=== PATIENT | female | born 1945 | race Caucasian/White ===

== ENCOUNTER 2017-01-15 11:28 | Emergency (ER) | payer MEDICARE, OTHER ==
--- OUTSIDE RECORDS SUMMARY | 2017-01-15 12:35 | XMS REPORT | Continuity of Care Document ---
:1945 Author Organization [facility] ([facility]) Address [address] [place] [address] Phone [phone] Care Team Providers Name Role Phone Ace Adam Primary Care Provider [phone] Source Comments This disclosure is being made pursuant to the Care Everywhere program, applicable federal and state laws, and may not contain all informaitonavailable regarding this patient.[facility] ([facility]) Active Allergies and Adverse Reactions No Active Allergies Current Medications Prescription Sig. Disp. Refills Start Date End Date Status Hhudzipebenin-Tv-Riwo- take 1 Tab by mouth Active Minerals (ONE-A-DAY daily. WOMENS FORMULA) 27-0.4 mg Tab CALCIUM take 1 Tab by mouth Active CARBONATE/VITAMIN D3 daily. (CALCIUM 600 + D PO) atenolol (TENORMIN) 25 take 0.5 Tabs by 60 Tab 11 07/02/2009 Active mg tablet mouth daily. Indications: Hypertension cyclobenzaprine Take 1 Tab by mouth 90 Tab 2 05/06/2010 Active (FLEXERIL) 10 mg every 8 hours as tablet needed. Indications: Muscle Spasm ferrous sulfate (IRON, Take 325 mg by mouth Active FERROUS SULFATE,) 325 daily. mg (65 mg Iron) tablet aspirin 81 mg chewable Take 81 mg by mouth Active tablet daily. lisinopril (PRINIVIL) Take 1 Tab by mouth 60 Tab 11 06/11/2010 Active 5 mg tablet daily. Indications: Hypertension estradiol (ESTRACE) 2 Take 1 Tab by mouth 60 Tab 5 09/16/2010 Active mg tablet daily. Indications: Vasomotor Symptoms associated with Menopause lisinopril (PRINIVIL) Take 1 Tab by mouth 60 Tab 5 09/16/2010 Active 10 mg tablet daily. Indications: Hypertension naproxen 500 mg tablet Take 1 Tab by mouth 2 60 Tab 1 04/20/2011 Active times daily with meals. Last refill until seen Indications: Osteoarthritis Active Problems Problem Noted Date Lipid screening 07/02/2009 Pain in limb 03/27/2008 Unspecified visual disturbance 12/09/2007 Immunizations Name Dates Previously Given Next Due Hepatitis B, unspecified 05/09/2001 Influenza 05/20/2009 Influenza, PF 06/11/2010 Social History Tobacco Use Types Packs/Day Years Used Date Current Every Day Smoker Cigarettes 2 30 Alcohol Use Drinks/Week oz/Week Comments Yes Last Filed Vital Signs Vital Sign Reading Time Taken Blood Pressure 145/64 06/11/2010 11:41 AM CDT Pulse 62 06/11/2010 11:41 AM CDT Temperature 36 C (96.8 F) 06/11/2010 11:41 AM CDT Respiratory Rate - - Height 1.57 m (5' 1.81") 07/02/2009 10:19 AM [employer] Weight 54.749 kg (120 lb 11.2 oz) 06/11/2010 11:41 AM CDT Body Mass Index 22.21 06/11/2010 11:41 AM CDT Oxygen Saturation - - Plan of Care Health Maintenance Due Date Last Done Comments HCV Screening 1945 Tdap Vaccine 1956 Td Vaccine 1963 Mammogram 1985 Colonoscopy 1995 Hepatitis B Vaccine (2 of 3 - Primary 06/06/2001 05/09/2001 Series) Zoster Vaccine 2005 Osteoporosis Screening (DXA Bone Density) 2010 Pneumococcal Vaccine (1 of 2 - PCV13) 2010 Lipid Disorder Screening 07/02/2014 07/02/2009 HCC Annual Coding COPD 08/09/2015 Influenza Vaccine: Seasonal (#1) 03/09/2016 06/11/2010, 05/20/2009 Results from Last 3 Months Not on file
[2017-01-15 12:53] LABS: Urine Bilirubin Negative (NEGATIVE); Urine Blood Negative /ul (NEGATIVE); Urine Ketone Negative (NEGATIVE); Urine Nitrite Negative (NEGATIVE); Urine Protein Negative (NEGATIVE); Urine Urobilinogen Normal (NORMAL)
[2017-01-15 13:04] LABS: Urine Appearance Clear; Urine Bacteria None Seen; Urine Color Yellow; Urine RBC None Seen /hpf (0-5); Urine WBC None Seen /hpf (0-5)
[2017-01-15] MEDS ORDERED: MAGNESIUM CITRATE 300 ML BTL PO ONE (14:02)
[2017-01-15] MEDS ORDERED: MAGNESIUM CITRATE 300 ML BTL ONE (14:09)
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
[2017-01-15 14:17] VITALS: BP 139/79
== END 2017-01-15 14:27 | disposition home or self-care (01) ==
LOC: ER 11:28
DX: K59.09 Other constipation (principal); F17.200 Nicotine dependence, unspecified, uncomplicated

== ENCOUNTER 2017-10-14 09:19 | Observation (INO) | payer MEDICARE, MEDICAID ==
[2017-10-14] MEDS ORDERED: ONDANSETRON HCL/PF 2 MG/ML VIAL IV PRN (09:26)
[2017-10-14] MEDS ORDERED: ACETAMINOPHEN 500 MG TABLET PO PRN (09:26)
[2017-10-14] MEDS ORDERED: MORPHINE SULFATE 2 MG/ML DISP.SYRIN IV PRN (09:26)
[2017-10-14 09:53] LABS: Hematocrit 32.1 % (37.0-47.0); Hemoglobin 10.1 gm/dL (12.5-16.0); Mean Cell Volume 78.1 fl (78-100); Mean Corpuscular Hemoglobin 24.6 pg (27-31); Mean Corpuscular Hgb Conc 31.5 g/dl (32-36); Mean Platelet Volume 10.2 fl (6.0-9.5); Neutrophil # 6.5 K/mm3 (1.3-6.0); Neutrophil % 62.4 % (42-75.0); Platelet Count 229 K/mm3 (150-450); Red Blood Count 4.11 M/mm3 (4.2-5.4); Red Cell Distribution Width 15.7 % (11.5-14.0); White Blood Count 10.5 K/mm3 (4.0-10.5)
[2017-10-14 10:08] LABS: ALT 71 U/L (19-67); AST 66 U/L (0-48); Albumin * 3.4 gm/dl (3.4-5.0); Alkaline Phosphatase * 123 U/L (50-170); Anion Gap 14.1 mmol/L (6.8-13.8); BUN/Creatinine Ratio 19.7 (9.0-21.6); Bilirubin Direct 0.1 mg/dL (0.0-0.3); Bilirubin, Total 0.2 mg/dL (0.0-1.1); Bilirubin,Indirect 0.1 mg/dL (0.1-0.7); Blood Urea Nitrogen 12 mg/dL (3-23); Calcium * 8.4 mg/dL (7.9-10.9); Carbon Dioxide 24.9 mmol/L (24-32.6); Chloride 101 mmol/L (97-106); Glucose * 133 mg/dL (70-110); Lipase 257 U/L (73-393); Sodium 136 mmol/L (132-142); Total Protein 7.2 gm/dL (6.2-8.2)
[2017-10-14] MEDS: NORMAL SALINE 1,000 ML IV PRN ×2 (10:49→20:19)
[2017-10-14] MEDS: ENOXAPARIN SODIUM 40 MG/0.4 ML SYRG SC SCH (10:53)
[2017-10-14] MEDS: NICOTINE 21 MG PATC TD SCH (10:54)
[2017-10-14] MEDS: HYDROmorphone HCL 2 MG/ML VIAL IV PRN ×2 (10:57→18:45)
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
[2017-10-14] MEDS ORDERED: DIATRIZOATE MEGLUMINE, SODIUM 30 ML BTL PO ONE (13:25)
[2017-10-14] MEDS ORDERED: ALBUTEROL SULFATE 2.5 MG/0.5 ML VIAL.NEB IH PRN (14:47)
[2017-10-14] MEDS ORDERED: CAPSAICIN 60 APPL TUBE TP PRN (14:47)
[2017-10-14] MEDS ORDERED: Lytes/Yerba Santa 60 APPL BTL MM PRN (14:47)
[2017-10-14] MEDS: HYDROmorphone HCL 2 MG TABLET PO PRN ×2 (14:54→22:29)
[2017-10-14] MEDS ORDERED: ALBUTEROL SULFATE/IPRATROPIUM 3 ML NEBU IH SCH (15:00)
[2017-10-14] MEDS: BACLOFEN 10 MG TABLET PO SCH (16:04)
[2017-10-14] MEDS: GABAPENTIN 300 MG CAPSULE PO SCH (16:04)
[2017-10-14] MEDS ORDERED: SENNOSIDES/DOCUSATE SODIUM 1 TAB TABLET PO PRN (17:00)
[2017-10-14] MEDS ORDERED: ALPRAZolam 0.5 MG TABLET PO SCH (21:00)
[2017-10-14] MEDS ORDERED: SENNOSIDES/DOCUSATE SODIUM 1 TAB TABLET PO SCH (21:00)
[2017-10-14] MEDS: PROPAFENONE HCL 150 MG TABLET PO SCH (21:30)
[2017-10-14] MEDS: PANTOPRAZOLE SODIUM 20 MG TABLET.DR PO SCH (21:31)
[2017-10-15] MEDS: HYDROmorphone HCL 2 MG TABLET PO PRN ×2 (03:48→08:38)
[2017-10-15] MEDS: NORMAL SALINE 1,000 ML IV PRN (03:53)
[2017-10-15] MEDS ORDERED: ONDANSETRON 4 MG TAB.RAPDIS PO PRN (07:44)
[2017-10-15 08:20] VITALS: BP 161/56
[2017-10-15] MEDS: GABAPENTIN 300 MG CAPSULE PO SCH (08:30)
[2017-10-15] MEDS: PROPAFENONE HCL 150 MG TABLET PO SCH (08:30)
[2017-10-15] MEDS: PANTOPRAZOLE SODIUM 20 MG TABLET.DR PO SCH (08:30)
[2017-10-15] MEDS: BACLOFEN 10 MG TABLET PO SCH (08:31)
[2017-10-15] MEDS ORDERED: ASPIRIN 81 MG TABLET.DR PO SCH (09:00)
[2017-10-15] MEDS ORDERED: POLYETHYLENE GLYCOL 3350 119 GM BTL PO SCH (09:00)
[2017-10-15] MEDS ORDERED: DULoxetine HCL 30 MG CAPSULE.SA PO SCH (09:00)
[2017-10-15] MEDS ORDERED: CHOLECALCIFEROL 1,000 UNIT CAPSULE PO SCH (09:00)
[2017-10-15] MEDS ORDERED: LOSARTAN POTASSIUM 50 MG TABLET PO SCH (09:00)
--- NOTE | 2017-10-15 09:43 | DS ---
(1) LUQ abdominal pain Problem: Acute (2) Intractable abdominal pain Problem: Acute Description of Stay: ADMISSION DATE: 10/14/2017 DISCHARGE DATE: 10/15/2017 ADMISSION HPI: The patient continues to complain of left upper quadrant/left side and left flank pain which has been going on now for the past few weeks. The patient has been seen multiple times in the clinic and evaluation and workup of the patient' s pain has been unremarkable me but unable to determine the etiology of her pain. We have also tried the patient on multiple pain medications which have been ineffective and the patient continues to have severe unrelieved pain. The patient will be admitted for pain control and further workup of her left-sided pain. HOSPITAL COURSE: The patient was admitted to the hospital for intractable left upper quadrant, left lateral trunk and left flank pain. Her pain was improved with IV pain medications which were transitioned to oral Dilaudid which the patient also tolerated well and she states that it seems to be adequately controlling her pain. CT scan of the abdomen and pelvis with contrast completed during her admission was unrevealing for the etiology of the patients pain but did show questionable mucosal irregularity involving the cecum with recommendations for a follow-up barium enema which we will schedule as an outpatient. The patient was discharged home in stable condition and instructed to follow-up within one week. FOLLOW-UP APPOINTMENTS: -Resume [facility] at discharge -Follow-up with PCP, Dr. Bolivar, within 1-2 weeks NEW OR CHANGED MEDICATIONS: -Dilaudid 2mg PO Q4H PRN severe pain (patient given a written prescription for # 75 with no refills) DISCONTINUED MEDICATIONS: None RADIOLOGY REPORTS: CT of the abdomen and pelvis with oral and IV contrast on 10/14/2017: 1. Status post cholecystectomy and hysterectomy 2. Appendix not clearly defined, but Im not convinced of inflammation in the region of the cecum. 3. Questionable mucosal irregularity involving the cecum opposite the ileocecal valve. Follow-up barium enema recommended. Procedures Performed: none Discharge Location: Other - Home with [facility] Disposition: Home Health Service Condition: Stable Discharge Activity: Activity as tolerated Discharge Diet: General/regular food Referrals: Karen Bolivar DO [Primary Care Provider] - Problem Oriented Discharge Instructions to Patient/Family: Abdominal Pain, Adult, [id number] Additional Patient Instructions (free text): -Please make TCM appointment unless shelter discharge. Thank you! Padmaja @ [phone].[facility]ume [facility] at discharge. Please call reports and fax orders upon discharge. -Resume [facility] at discharge -Follow-up with PCP, Dr. Bolivar, within 1-2 weeks on 10-26-17 @ 2:45pm. Prescriptions (Any new or edited meds): HYDROmorphone HCL [Dilaudid] 2 mg PO Q4H PRN #75 tablet PRN Reason: Severe Pain (Pain Scale 7-10) Complete Home Medications List: Complete Home Medication List: Albuterol Sulfate [Proair Hfa] 2 puff IH Q6H PRN 09/24/15 Estradiol 2 mg PO DAILY 09/24/15 Omeprazole [Prilosec] 20 mg PO BID 09/24/15 Propafenone HCl 225 mg PO BID 09/24/15 Albuterol Sulfate/Ipratropium [Duoneb 2.5-0.5MG/3ML Soln] 3 ml IH QID 12/11/15 ALPRAZolam [Xanax] 0.5 mg PO HS 10/06/17 Aspirin [Aspirin Enteric Coated] 81 mg PO DAILY 10/06/17 Baclofen 10 mg PO TID 10/06/17 Cholecalciferol (Vitamin D3) [Vitamin D3] 2,000 unit PO DAILY 10/06/17 Duloxetine HCl [Cymbalta] 30 mg PO DAILY 10/06/17 Gabapentin [Neurontin] 300 mg PO TID 10/06/17 Losartan Potassium [Cozaar] 12.5 mg PO DAILY 10/06/17 Lytes/Yerba Missy [Mouthkote Solution] 5 ml MM Q4H PRN 10/06/17 Polyethylene Glycol 3350 [Miralax] 17 gm PO DAILY 10/06/17 Sennosides/Docusate Sodium [Senna-S Tablet] 2 each PO TID 10/06/17 Capsaicin [Zostrix 0.025%] 1 appl TP TID PRN 10/14/17 Acetaminophen [Tylenol] 1,000 mg PO Q6H PRN tablet 10/15/17 HYDROmorphone HCL [Dilaudid] 2 mg PO Q4H PRN #75 tablet 10/15/17
[2017-10-15] MEDS: ENOXAPARIN SODIUM 40 MG/0.4 ML SYRG SC SCH (10:36)
[2017-10-15] MEDS: NICOTINE 21 MG PATC TD SCH (10:36)
== END 2017-10-15 11:24 | disposition home health service (06) ==
LOC: MS 09:19
PROVIDERS: ADMIT Internal Medicine; ATTEND Internal Medicine
DX: R10.12 Left upper quadrant pain; K21.9 Gastro-esophageal reflux disease without esophagitis; Z68.25 Body mass index [BMI] 25.0-25.9, adult; M06.9 Rheumatoid arthritis, unspecified; F41.8 Other specified anxiety disorders; I10 Essential (primary) hypertension; R10.32 Left lower quadrant pain; F17.210 Nicotine dependence, cigarettes, uncomplicated; J44.9 Chronic obstructive pulmonary disease, unspecified
CPT/HCPCS: 36415; 74177; 80048; 80076; 83690; 85025; 96372; 96374; 96376; G0378; G0379

== ENCOUNTER 2020-03-29 08:27 | Observation (INO) ==
[2020-03-29] MEDS ORDERED: ALBUTEROL SULFATE 2.5 MG/0.5 ML VIAL.NEB IH ONE (09:30)
[2020-03-29 09:50] LABS: Urine Bilirubin Negative (NEGATIVE); Urine Blood Negative /ul (NEGATIVE); Urine Ketone Negative (NEGATIVE); Urine Nitrite Negative (NEGATIVE); Urine Protein Negative (NEGATIVE); Urine Specific Gravity 1.015 SP.GR. (1.005-1.010); Urine Urobilinogen Normal (NORMAL)
[2020-03-29 09:55] LABS: Hematocrit 41.4 % (37.0-47.0); Hemoglobin 13.6 gm/dL (12.5-16.0); Mean Cell Volume 91.6 fl (78-100); Mean Corpuscular Hemoglobin 30.1 pg (27-31); Mean Corpuscular Hgb Conc 32.9 g/dl (32-36); Mean Platelet Volume 11.5 fl (8-12.5); Neutrophil # 4.2 K/mm3 (1.3-6.0); Platelet Count 143 K/mm3 (150-450); Red Blood Count 4.52 M/mm3 (4.2-5.4); Red Cell Distribution Width 13.7 % (11.5-14.0); White Blood Count 6.6 K/mm3 (4.0-10.5)
[2020-03-29 10:02] LABS: Urine Appearance Slightly Cloudy (CLEAR); Urine Bacteria 1+; Urine Color Yellow; Urine RBC None Seen /hpf (0-5); Urine WBC 0-5 /hpf (0-5)
[2020-03-29 10:13] LABS: Troponin I 0.112 ng/mL (0.00-0.10)
[2020-03-29] MEDS ORDERED: ASPIRIN 81 MG TAB.CHEW PO ONE (10:17)
[2020-03-29 10:18] LABS: Albumin * 3.5 gm/dl (3.4-5.0); Anion Gap 11.2 mmol/L (6.8-13.8); BUN/Creatinine Ratio 13.4 (9.0-21.6); Bilirubin, Total 0.5 mg/dL (0.0-1.1); Calcium * 8.9 mg/dL (7.9-10.9); Carbon Dioxide 25.7 mmol/L (24-32.6); Potassium 3.9 mmol/L (3.4-4.6); Total Protein 7.6 gm/dL (6.2-8.2)
[2020-03-29] MEDS ORDERED: ASPIRIN 81 MG TAB.CHEW ONE (10:18)
[2020-03-29] MEDS ORDERED: NITROGLYCERIN 0.4 MG/TAB BTL SL ONE ×4 (10:18→10:35)
[2020-03-29] MEDS ORDERED: LEVOFLOXACIN IN DEXTROSE 5 % 500 MG/100 ML BAG IV ONE (10:46)
[2020-03-29 10:48] LABS: SARS-CoV-2 Detected (NotDetected)
[2020-03-29] MEDS ORDERED: NORMAL SALINE 1,000 ML IV ONE ×2 (11:06→15:02)
[2020-03-29] MEDS ORDERED: DEXAMETHASONE SODIUM PHOSP/PF 10 MG/ML VIAL IV ONE (11:06)
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
[2020-03-29] MEDS ORDERED: ACETAMINOPHEN 325 MG TABLET PO PRN (13:06)
[2020-03-29] MEDS ORDERED: DOCUSATE SODIUM 100 MG CAPSULE PO PRN (13:09)
[2020-03-29] MEDS ORDERED: ALPRAZolam 0.5 MG TABLET PO PRN (13:09)
[2020-03-29] MEDS ORDERED: BACLOFEN 10 MG TABLET PO PRN (13:09)
[2020-03-29] MEDS ORDERED: ALBUTEROL SULFATE 200 PUFF INHALER IH PRN (13:09)
[2020-03-29] MEDS: ROSUVASTATIN CALCIUM 20 MG TABLET PO SCH ×2 (14:31→20:49)
[2020-03-29] MEDS: NICOTINE 14 MG PATC TD SCH (14:50)
[2020-03-29] MEDS: ENOXAPARIN SODIUM 40 MG/0.4 ML SYRG SC SCH (14:52)
[2020-03-29] MEDS: IPRATROPIUM/ALBUTEROL SULFATE 120 PUFF INHALER IH SCH ×3 (14:55→19:02)
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
[2020-03-29] MEDS: METHYLPREDNISOLONE SOD SUCC/PF 40 MG/ML VIAL IV SCH ×2 (15:35→20:50)
[2020-03-29] MEDS: metFORMIN HCL 500 MG TABLET PO SCH (16:25)
[2020-03-29] MEDS: GABAPENTIN 300 MG CAPSULE PO SCH (17:21)
[2020-03-29] MEDS: PANTOPRAZOLE SODIUM 20 MG TABLET.DR PO SCH (20:52)
[2020-03-29] MEDS ORDERED: MELATONIN 3,000 MCG TABLET PO SCH (21:00)
[2020-03-30] MEDS: METHYLPREDNISOLONE SOD SUCC/PF 40 MG/ML VIAL IV SCH (02:42)
[2020-03-30] MEDS: IPRATROPIUM/ALBUTEROL SULFATE 120 PUFF INHALER IH SCH ×2 (07:00→11:20)
[2020-03-30] MEDS: PANTOPRAZOLE SODIUM 20 MG TABLET.DR PO SCH (07:00)
[2020-03-30 07:20] LABS: Hematocrit 37.1 % (37.0-47.0); Mean Corpuscular Hemoglobin 29.1 pg (27-31); Mean Corpuscular Hgb Conc 32.3 g/dl (32-36); Mean Platelet Volume 11.6 fl (8-12.5); Neutrophil # 3.5 K/mm3 (1.3-6.0); Neutrophil % 69.3 % (42-75.0); Platelet Count 141 K/mm3 (150-450); Red Blood Count 4.12 M/mm3 (4.2-5.4); Red Cell Distribution Width 13.7 % (11.5-14.0); White Blood Count 5.1 K/mm3 (4.0-10.5)
[2020-03-30 07:36] LABS: Albumin * 2.9 gm/dl (3.4-5.0); Anion Gap 15.7 mmol/L (6.8-13.8); BUN/Creatinine Ratio 18.9 (9.0-21.6); Bilirubin, Total 0.3 mg/dL (0.0-1.1); Ca. Corrected For Albumin 9.1 mg/dL (8.4-10.2); Calcium * 8.5 mg/dL (7.9-10.9); Carbon Dioxide 22.2 mmol/L (24-32.6); Potassium 3.9 mmol/L (3.4-4.6); Total Protein 6.6 gm/dL (6.2-8.2)
[2020-03-30] MEDS: GABAPENTIN 300 MG CAPSULE PO SCH ×2 (08:39→13:29)
[2020-03-30] MEDS: metFORMIN HCL 500 MG TABLET PO SCH (08:40)
[2020-03-30] MEDS ORDERED: ASPIRIN 81 MG TABLET.DR PO SCH (09:00)
[2020-03-30] MEDS ORDERED: AZITHROMYCIN 250 MG TABLET PO SCH (09:00)
[2020-03-30] MEDS ORDERED: LOSARTAN POTASSIUM 50 MG TABLET PO SCH (09:00)
[2020-03-30] MEDS ORDERED: FERROUS SULFATE 325 MG TABLET PO SCH (09:00)
[2020-03-30] MEDS ORDERED: amLODIPine BESYLATE 5 MG TABLET PO SCH (09:00)
[2020-03-30] MEDS: NICOTINE 14 MG PATC TD SCH (13:29)
[2020-03-30] MEDS: ENOXAPARIN SODIUM 40 MG/0.4 ML SYRG SC SCH (13:31)
--- NOTE | 2020-03-30 14:46 | DS ---
(1) COVID-19 virus detected Problem: Acute (2) Pneumonia Problem: Acute (3) Hypoxia Problem: Resolved (4) Major depression Problem: Chronic Qualifiers: (5) Rheumatoid arthritis Problem: Chronic (6) Osteoporosis Problem: Chronic (7) GERD (gastroesophageal reflux disease) Problem: Chronic (8) COPD (chronic obstructive pulmonary disease) Problem: Chronic Qualifiers: COPD type: COPD with acute exacerbation Qualified Code(s): J44.1 - Chronic obstructive pulmonary disease with (acute) exacerbation (9) Smoker Problem: Chronic (10) Nicotine dependence Problem: Chronic (11) Elevated troponin Problem: Acute (12) Elevated transaminase level Problem: Chronic (13) Dehydration Problem: Resolved Date of Discharge:: 03/30/20 Hospital Course: 74-year-old female admitted for COVID-19 pneumonia and COPD exacerbation was evaluated at bedside and was found to be afebrile and in no acute distress. Patient has shown significant clinical improvement and response to treatment. Her shortness of breath has completely resolved and she is now on room air and saturating above 96%. The patient's color has improved and she appears more energetic than when she arrived, she also requests to go home. She denies any dyspnea when she gets up to go to the bathroom or any other respiratory symptoms. During bedside evaluation the patient was not noted to be coughing. We discussed her lab results and she was informed that her liver enzymes were elevated on admission but with IV hydration and treatment it has now improved. Upon questioning she admits to drinking alcohol especially when she plays pool so it was explained to her that she needs to abstain from alcohol use in order to avoid further injury to her liver. She also was found to have an elevated troponin on 2 consecutive lab tests but denies any chest pain and auscultation was found to have normal sinus rhythm. The patient's EKG on admission was also negative for any acute ST elevations. Given these findings we have decided to discharge patient home with instructions to go under quarantine for 14 days in order to avoid spreading the virus. After that time is complete she is to follow-up with her PCP. Will resume all of her routine meds to be taken at home and provided with additional days of oral antibiotics specifically azithromycin and oral steroids. Procedures Performed: none Results and Findings: Pending Mircobiology Results 03/29/20 10:24 Blood Blood Culture - Preliminary NO GROWTH 24 HOURS 03/29/20 09:30 Blood Blood Culture - Preliminary NO GROWTH 24 HOURS Lab Pending Results 03/29/20 09:30: Chlamy pneumoniae PCR Not detected, Adenovirus (PCR) Not detected, B. pertussis DNA (PCR) Not detected, B.parapertussis DNA PCR Not detected, Coronavirus OC43 (PCR) Not detected, Coronavirus HKU1 (PCR) Not detected, Coronavirus 229E (PCR) Not detected, Coronavirus NL63 (PCR) Not detected, Human Metapneumovir PCR Not detected, Influenza A (RT-PCR) Not detected, Influenza B (RT-PCR) Not detected, M. pneumoniae (PCR) Not detected, Parainfluenza 1 (PCR) Not detected, Parainfluenza 2 (PCR) Not detected, Parainfluenza 3 (PCR) Not detected, Parainfluenza 4 (PCR) Not detected, RSV (PCR) Not detected, Rhinovirus (PCR) Not detected, SARS-CoV-2 (PCR) Detected H 03/29/20 09:30: WBC 6.6, RBC 4.52, Hgb 13.6, Hct 41.4, MCV 91.6, MCH 30.1, MCHC 32.9, RDW 13.7, Plt Count 143 L, MPV 11.5, Immature Gran % (Auto) 1.50 H, Immature Gran # (Auto) 0.10 H, Neutrophils % 64.0, Lymphocytes % 23.3, Monocytes % 10.3 H, Eosinophils % 0.0, Basophils % 0.9, Nucleated RBC % 0.0, Neutrophils # 4.2, Lymphocytes # 1.54, Monocytes # 0.7, Eosinophils # 0.0, Absolute Basophils 0.1 03/29/20 09:30: Sodium 134, Plasma Sodium 134, Potassium 3.9, Chloride 101, Carbon Dioxide 25.7, Anion Gap 11.2, BUN 11, Creatinine 0.82, Est GFR (Non-Af Amer) 72 D, BUN/Creatinine Ratio 13.4, Random Glucose 121 H, Calcium 8.9, Calcium Adj for Albumin 9.0, Total Bilirubin 0.5, AST 84 H, ALT 73 H, Alkaline Phosphatase 101, Troponin I 0.112 H*, B-Natriuretic Peptide 39, Total Protein 7.6, Albumin 3.5 03/29/20 09:30: Lactic Acid, Venous 1.9 03/29/20 09:30: Group A Strep Rapid Negative 03/29/20 09:30: Urine Color Yellow, Urine Appearance Slightly cloudy, Urine pH 6.0, Ur Specific Curtis 1.015, Urine Protein Negative, Urine Glucose (UA) Negative, Urine Ketones Negative, Urine Blood Negative, Urine Nitrate Negative, Urine Bilirubin Negative, Urine Urobilinogen Normal, Ur Leukocyte Esterase Negative, Urine RBC None seen, Urine WBC 0-5, Ur Epithelial Cells 10-25 H, Urine Bacteria 1+ H, Urine Culture Comments No culture indicated 03/29/20 09:30: D-Dimer 1.03 H 03/29/20 15:35: Troponin I 0.114 H* 03/30/20 06:45: WBC 5.1 D, RBC 4.12 L, Hgb 12.0 L, Hct 37.1, MCV 90.0, MCH 29.1, MCHC 32.3, RDW 13.7, Plt Count 141 L, MPV 11.6, Immature Gran % (Auto) 1.20 H, Immature Gran # (Auto) 0.06 H, Neutrophils % 69.3, Lymphocytes % 22.2, Monocytes % 7.1, Eosinophils % 0.0, Basophils % 0.2, Nucleated RBC % 0.0, Neutrophils # 3.5, Lymphocytes # 1.13 L, Monocytes # 0.4, Eosinophils # 0.0, Absolute Basophils 0.0 03/30/20 06:45: Sodium 140, Plasma Sodium 142, Potassium 3.9, Chloride 106, Carbon Dioxide 22.2 L, Anion Gap 15.7 H, BUN 14, Creatinine 0.74, Est GFR (Non- Af Amer) 82, BUN/Creatinine Ratio 18.9, Random Glucose 206 H D, Calcium 8.5, Calcium Adj for Albumin 9.1, Total Bilirubin 0.3, AST 52 H, ALT 54, Alkaline Phosphatase 77, Total Protein 6.6, Albumin 2.9 L Discharge Location: Home Disposition: Home self-care Condition: Fair Face to Face Encounter completed per [facility] Guidelines: No Discharge Activity: Activity as tolerated Discharge Diet: General/regular food Referrals: Jaycob Tovar MD [Primary Care Provider] - Problem Oriented Discharge Instructions to Patient/Family: Steps to Quit Smoking, [id number], Coping with Quitting Smoking, Smoking Tobacco Information, Adult Additional Patient Instructions (free text): Resume services with [facility]. Please call report and fax orders upon discharge. Prescriptions (Any new or edited meds): Prednisone 50 mg PO DAILY #5 tab Transmission Status: Pending to [place] Azithromycin [Zithromax] 250 mg PO DAILY #4 tab Transmission Status: Pending to [place], [place] Complete Home Medications List: Complete Home Medication List: Albuterol Sulfate/Ipratropium [Duoneb 2.5-0.5MG/3ML Soln] 3 ml IH QID 12/11/15 ferrous fumarate 325 mg (106 mg iron) tablet 325 mg PO DAILY #90 tab 05/08/19 aspirin 81 mg tablet,delayed release 81 mg .ROUTE .COMPLEX #90 tab 06/19/19 docusate sodium 100 mg capsule 100 - 200 mg PO DAILY PRN cap 06/27/19 melatonin 10 mg capsule 10 mg PO HS 06/27/19 albuterol sulfate 90 mcg/actuation aerosol inhaler 2 puff IH Q6H PRN #18 g 07/13/19 metformin 500 mg tablet 500 mg PO BID #60 tab 07/24/19 baclofen 10 mg tablet 10 mg PO TID PRN #30 tab 07/31/19 omeprazole 20 mg capsule,delayed release 20 mg PO BID #60 cap 08/14/19 Amlodipine Besylate 5 mg PO DAILY 11/20/19 Atorvastatin Calcium 40 mg PO HS 11/20/19 Ibuprofen 1 tab PO Q6H PRN 11/20/19 Losartan Potassium [Cozaar] 100 mg PO DAILY 11/20/19 alprazolam 0.5 mg tablet 0.5 mg PO BID PRN #60 tab 03/04/20 Acetaminophen 500 mg QID PRN 03/29/20 Budesonide/Formoterol Fumarate [Symbicort 160-4.5 Mcg Inhaler] 2 puff INHALATION BID 03/29/20 Cholecalciferol (Vitamin D3) [Vitamin D3] 2,000 unit PO DAILY 03/29/20 Flaxseed Oil [Flax Seed Oil] 1,000 mg PO TID 03/29/20 Gabapentin 1 cap PO 1200 03/29/20 Gabapentin 600 mg PO 0800,2100 03/29/20 Levothyroxine Sodium [Synthroid] 50 mcg PO DAILY 03/29/20 Polyethylene Glycol 3350 [Miralax] 17 gm PO BID PRN 03/29/20 Pregabalin [Lyrica] 50 mg PO TID 03/29/20 Sennosides/Docusate Sodium [Senna-S 8.6-50 mg Tablet] 2 ea PO DAILY 03/29/20 Vortioxetine Hydrobromide [Trintellix] 20 mg PO DAILY 03/29/20 Azithromycin [Zithromax] 250 mg PO DAILY #4 tab 03/30/20 Prednisone 50 mg PO DAILY #5 tab 03/30/20 Forms: COVID-What is Self Isolation?, COVID-Isolation/Return to Work, Patient Portal Registration
[2020-03-30 15:20] VITALS: BP 135/58
== END 2020-03-30 15:40 | disposition home or self-care (01) ==
LOC: ER 08:27 → MS 08:27
PROVIDERS: ADMIT Family Medicine; ATTEND Family Medicine
DX: E11.9 Type 2 diabetes mellitus without complications; F17.210 Nicotine dependence, cigarettes, uncomplicated; R09.02 Hypoxemia; J12.89 Other viral pneumonia; E86.0 Dehydration; J44.1 Chronic obstructive pulmonary disease with (acute) exacerbation; F33.9 Major depressive disorder, recurrent, unspecified; R74.0 Nonspecific elevation of levels of transaminase and lactic acid dehydrogenase [LDH]; I10 Essential (primary) hypertension; U07.1 COVID-19; M81.0 Age-related osteoporosis without current pathological fracture; J44.0 Chronic obstructive pulmonary disease with (acute) lower respiratory infection; M06.9 Rheumatoid arthritis, unspecified; R79.89 Other specified abnormal findings of blood chemistry
CPT/HCPCS: 36415; 71010; 71045; 71275; 80053; 81001; 83519; 83605; 83880; 84484; 85025; 85379; 87040; 87081; 87430; 87633; 93005; 94640; 94664; 96361; 96365; 96372; 96375; 96376; 99285; G0378; Q9967

== ENCOUNTER 2020-04-02 10:17 | Inpatient (IN) ==
[2020-04-02 11:06] LABS: Hematocrit 35.4 % (37.0-47.0); Hemoglobin 11.7 gm/dL (12.5-16.0); Mean Cell Volume 88.5 fl (78-100); Mean Corpuscular Hemoglobin 29.3 pg (27-31); Mean Corpuscular Hgb Conc 33.1 g/dl (32-36); Mean Platelet Volume 12.1 fl (8-12.5); Neutrophil # 6.6 K/mm3 (1.3-6.0); Platelet Count 180 K/mm3 (150-450); Red Cell Distribution Width 13.8 % (11.5-14.0); White Blood Count 8.6 K/mm3 (4.0-10.5)
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
[2020-04-02 11:29] LABS: Troponin I 0.112 ng/mL (0.00-0.10)
[2020-04-02 11:39] LABS: Albumin * 2.8 gm/dl (3.4-5.0); Anion Gap 15.4 mmol/L (6.8-13.8); BUN/Creatinine Ratio 13.7 (9.0-21.6); Bilirubin, Total 0.3 mg/dL (0.0-1.1); Ca. Corrected For Albumin 8.9 mg/dL (8.4-10.2); Calcium * 8.3 mg/dL (7.9-10.9); Carbon Dioxide 21.8 mmol/L (24-32.6); Potassium 3.2 mmol/L (3.4-4.6); Total Protein 6.4 gm/dL (6.2-8.2)
[2020-04-02] MEDS ORDERED: ACETAMINOPHEN 325 MG TABLET PO ONE (12:08)
[2020-04-02] MEDS: NICOTINE 21 MG PATC TD SCH (17:38)
[2020-04-02] MEDS ORDERED: AZITHROMYCIN 250 MG TABLET PO ONE (20:08)
[2020-04-02] MEDS ORDERED: BACLOFEN 10 MG TABLET PO PRN (21:49)
[2020-04-02] MEDS ORDERED: ALBUTEROL SULFATE 200 PUFF INHALER IH PRN (21:49)
[2020-04-02] MEDS ORDERED: POLYETHYLENE GLYCOL 3350 17 GM PACKET PO PRN (21:49)
[2020-04-02] MEDS ORDERED: DOCUSATE SODIUM 100 MG CAPSULE PO PRN (21:49)
[2020-04-02] MEDS: DEXAMETHASONE SODIUM PHOSP/PF 10 MG/ML VIAL IV SCH (21:54)
[2020-04-02] MEDS ORDERED: AZITHROMYCIN 250 MG TABLET ONE (21:57)
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
[2020-04-03] MEDS: ACETAMINOPHEN 500 MG TABLET PO PRN (05:08)
[2020-04-03] MEDS: ALPRAZolam 0.5 MG TABLET PO PRN (05:22)
[2020-04-03] MEDS: GABAPENTIN 300 MG CAPSULE PO SCH ×3 (08:46→21:30)
[2020-04-03] MEDS: amLODIPine BESYLATE 5 MG TABLET PO SCH (08:47)
[2020-04-03] MEDS: CHOLECALCIFEROL 1,000 UNIT CAPSULE PO SCH (08:47)
[2020-04-03] MEDS: ASPIRIN 81 MG TABLET.DR PO SCH (08:47)
[2020-04-03] MEDS: LOSARTAN POTASSIUM 50 MG TABLET PO SCH (08:47)
[2020-04-03] MEDS: LEVOTHYROXINE SODIUM 50 MCG TABLET PO SCH (08:47)
[2020-04-03] MEDS: FERROUS SULFATE 325 MG TABLET PO SCH (08:47)
[2020-04-03] MEDS: SENNOSIDES/DOCUSATE SODIUM 1 TAB TABLET PO SCH (08:47)
[2020-04-03] MEDS: PANTOPRAZOLE SODIUM 20 MG TABLET.DR PO SCH ×2 (08:48→21:32)
[2020-04-03] MEDS: FLUTICASONE PROPION/SALMETEROL 14 PUFF DISK.W.DEV IH SCH ×2 (08:48→21:29)
[2020-04-03] MEDS: metFORMIN HCL 500 MG TABLET PO SCH ×2 (08:48→16:10)
[2020-04-03] MEDS: AZITHROMYCIN 250 MG TABLET PO SCH (08:48)
[2020-04-03] MEDS: DEXAMETHASONE SODIUM PHOSP/PF 10 MG/ML VIAL IV SCH (08:49)
[2020-04-03] MEDS: PREGABALIN 50 MG CAPSULE PO SCH ×3 (08:57→16:10)
[2020-04-03] MEDS ORDERED: AZITHROMYCIN 250 MG TABLET PO SCH (09:00)
[2020-04-03] MEDS ORDERED: OMEPRAZOLE 20 MG CAPSULE.SA PO SCH (09:00)
[2020-04-03] MEDS: ENOXAPARIN SODIUM 40 MG/0.4 ML SYRG SC SCH (10:24)
[2020-04-03] MEDS: NICOTINE 21 MG PATC TD SCH (16:10)
[2020-04-03] MEDS: MELATONIN 3,000 MCG TABLET PO SCH (21:31)
[2020-04-03] MEDS: ROSUVASTATIN CALCIUM 20 MG TABLET PO SCH (21:31)
--- NOTE | 2020-04-03 23:52 | PN ---
Subjective - Date and Time Seen Date: 04/03/20 Time: 08:15 Subjective Narrative: Dee Dee reports feeling better this morning. She is less short of breath. Still coughing. No fever, chills. She has a little appetite. Objective - Vitals Vitals: Last Vital Signs Temp 36.5 C 04/03/20 22:47 Pulse 61 04/03/20 22:47 Resp 24 H 04/03/20 22:47 BP 115/59 04/03/20 22:47 Pulse Ox 96 04/03/20 22:47 - Exam Constitutional: Present: Alert, Oriented x3, Cooperative Respiratory: Present: lungs clear, normal breath sounds, respiratory distress - mild tachypnea Cardiovascular/Chest: Present: regular rate, rhythm, no edema, no murmur Abdomen: Present: Normal bowel sounds, soft, nontender, nondistended, no rebound tenderness Appearance: Present: appropriate appearance, appropriate insight, no memory impairment Eye contact: Present: cooperative, good eye contact, normal speech Assessment/Plan Plan Narrative: Overall feeling better. Still needing 4lpm of oxygen via NC. Will attempt to wean as able. Keep sats 90% or above. Continue dexamethasone and azithromycin. - Problems/Diagnosis (1) Acute respiratory failure with hypoxia Problem: Acute (2) Pneumonia due to COVID-19 virus Problem: Acute (3) Tobacco abuse Problem: Chronic (4) COPD (chronic obstructive pulmonary disease) Problem: Chronic Qualifiers: COPD type: unspecified COPD Qualified Code(s): J44.9 - Chronic obstructive pulmonary disease, unspecified
[2020-04-04] MEDS: ACETAMINOPHEN 500 MG TABLET PO PRN (05:57)
[2020-04-04] MEDS: ACETAMINOPHEN 325 MG TABLET PO PRN ×2 (07:59→18:16)
[2020-04-04] MEDS: GABAPENTIN 300 MG CAPSULE PO SCH ×3 (08:00→20:48)
[2020-04-04] MEDS: FERROUS SULFATE 325 MG TABLET PO SCH (08:00)
[2020-04-04] MEDS: PANTOPRAZOLE SODIUM 20 MG TABLET.DR PO SCH ×2 (08:01→20:47)
[2020-04-04] MEDS: AZITHROMYCIN 250 MG TABLET PO SCH (08:01)
[2020-04-04] MEDS: CHOLECALCIFEROL 1,000 UNIT CAPSULE PO SCH (08:02)
[2020-04-04] MEDS: ASPIRIN 81 MG TABLET.DR PO SCH (08:02)
[2020-04-04] MEDS: amLODIPine BESYLATE 5 MG TABLET PO SCH (08:02)
[2020-04-04] MEDS: metFORMIN HCL 500 MG TABLET PO SCH ×2 (08:03→18:17)
[2020-04-04] MEDS: LOSARTAN POTASSIUM 50 MG TABLET PO SCH (08:03)
[2020-04-04] MEDS: LEVOTHYROXINE SODIUM 50 MCG TABLET PO SCH (08:04)
[2020-04-04] MEDS: SENNOSIDES/DOCUSATE SODIUM 1 TAB TABLET PO SCH (08:04)
[2020-04-04] MEDS: FLUTICASONE PROPION/SALMETEROL 14 PUFF DISK.W.DEV IH SCH ×2 (09:30→20:49)
[2020-04-04] MEDS: DEXAMETHASONE SODIUM PHOSP/PF 10 MG/ML VIAL IV SCH (09:31)
[2020-04-04] MEDS: ENOXAPARIN SODIUM 40 MG/0.4 ML SYRG SC SCH (09:32)
[2020-04-04] MEDS: PREGABALIN 50 MG CAPSULE PO SCH ×3 (09:32→18:17)
[2020-04-04] MEDS: NICOTINE 21 MG PATC TD SCH (18:16)
[2020-04-04] MEDS: ROSUVASTATIN CALCIUM 20 MG TABLET PO SCH (20:48)
[2020-04-04] MEDS: ALPRAZolam 0.5 MG TABLET PO PRN (20:58)
[2020-04-04] MEDS: MELATONIN 3,000 MCG TABLET PO SCH (20:58)
--- NOTE | 2020-04-04 23:45 | PN ---
Subjective - Date and Time Seen Date: 04/04/20 Time: 12:00 Subjective Narrative: Dee Dee reports feeling better. She was weaned from 4 to 2lpm, but has had to go back up to 4. No fever, chills, nausea, or vomiting. Objective - Vitals Vitals: Last Vital Signs Temp 36.4 C 04/04/20 18:33 Pulse 75 04/04/20 18:33 Resp 24 H 04/04/20 18:33 BP 136/52 04/04/20 18:33 Pulse Ox 95 04/04/20 18:33 - Exam Constitutional: Present: Alert, Oriented x3, Cooperative ENT Exam: Present: hearing grossly normal Respiratory: Present: lungs clear, normal breath sounds, no respiratory distress Cardiovascular/Chest: Present: regular rate, rhythm, no murmur Abdomen: Present: Normal bowel sounds, soft, nontender, nondistended Skin Exam: Present: normal color, warm/dry, no cyanosis Appearance: Present: appropriate appearance, appropriate insight Eye contact: Present: cooperative, good eye contact, normal speech Thoughts: Present: normal thought pattern, no apparent hallucination Assessment/Plan Plan Narrative: Clinically feeling a little better. She remains on 4lpm at the moment but we were able to wean down for a brief period to 2lpm today. Continue azithromycin and dexamethasone. Will continue weaning as able. - Problems/Diagnosis (1) Acute respiratory failure with hypoxia Problem: Acute (2) Pneumonia due to COVID-19 virus Problem: Acute (3) Tobacco abuse Problem: Chronic (4) COPD (chronic obstructive pulmonary disease) Problem: Chronic Qualifiers: COPD type: unspecified COPD Qualified Code(s): J44.9 - Chronic obstructive pulmonary disease, unspecified
[2020-04-05] MEDS: ACETAMINOPHEN 325 MG TABLET PO PRN ×2 (04:54→19:51)
[2020-04-05 07:17] LABS: Hematocrit 36.4 % (37.0-47.0); Hemoglobin 11.9 gm/dL (12.5-16.0); Mean Cell Volume 88.3 fl (78-100); Mean Corpuscular Hemoglobin 28.9 pg (27-31); Mean Corpuscular Hgb Conc 32.7 g/dl (32-36); Mean Platelet Volume 10.9 fl (8-12.5); Neutrophil # 3.6 K/mm3 (1.3-6.0); Neutrophil % 60.9 % (42-75.0); Platelet Count 272 K/mm3 (150-450); Red Blood Count 4.12 M/mm3 (4.2-5.4); Red Cell Distribution Width 13.5 % (11.5-14.0)
[2020-04-05 07:31] LABS: Albumin * 2.5 gm/dl (3.4-5.0); Anion Gap 14.5 mmol/L (6.8-13.8); BUN/Creatinine Ratio 26.9 (9.0-21.6); Bilirubin, Total 0.4 mg/dL (0.0-1.1); Ca. Corrected For Albumin 9.5 mg/dL (8.4-10.2); Calcium * 8.6 mg/dL (7.9-10.9); Carbon Dioxide 24.7 mmol/L (24-32.6); Potassium 3.2 mmol/L (3.4-4.6); Total Protein 6.3 gm/dL (6.2-8.2)
[2020-04-05] MEDS: GABAPENTIN 300 MG CAPSULE PO SCH ×3 (08:53→20:26)
[2020-04-05] MEDS: SENNOSIDES/DOCUSATE SODIUM 1 TAB TABLET PO SCH (08:53)
[2020-04-05] MEDS: ASPIRIN 81 MG TABLET.DR PO SCH (08:53)
[2020-04-05] MEDS: CHOLECALCIFEROL 1,000 UNIT CAPSULE PO SCH (08:55)
[2020-04-05] MEDS: FERROUS SULFATE 325 MG TABLET PO SCH (08:55)
[2020-04-05] MEDS: AZITHROMYCIN 250 MG TABLET PO SCH (08:55)
[2020-04-05] MEDS: ENOXAPARIN SODIUM 40 MG/0.4 ML SYRG SC SCH (08:55)
[2020-04-05] MEDS: LEVOTHYROXINE SODIUM 50 MCG TABLET PO SCH (08:55)
[2020-04-05] MEDS: metFORMIN HCL 500 MG TABLET PO SCH ×2 (08:56→17:41)
[2020-04-05] MEDS: PANTOPRAZOLE SODIUM 20 MG TABLET.DR PO SCH ×2 (08:56→20:25)
[2020-04-05] MEDS: DEXAMETHASONE SODIUM PHOSP/PF 10 MG/ML VIAL IV SCH (08:56)
[2020-04-05] MEDS: PREGABALIN 50 MG CAPSULE PO SCH ×3 (08:58→17:43)
[2020-04-05] MEDS: LOSARTAN POTASSIUM 50 MG TABLET PO SCH (09:00)
[2020-04-05] MEDS: amLODIPine BESYLATE 5 MG TABLET PO SCH (09:00)
[2020-04-05] MEDS: FLUTICASONE PROPION/SALMETEROL 14 PUFF DISK.W.DEV IH SCH ×2 (09:54→20:26)
[2020-04-05] MEDS: NICOTINE 21 MG PATC TD SCH (17:41)
[2020-04-05] MEDS: ROSUVASTATIN CALCIUM 20 MG TABLET PO SCH (20:25)
[2020-04-05] MEDS: ALPRAZolam 0.5 MG TABLET PO PRN (20:25)
[2020-04-05] MEDS: MELATONIN 3,000 MCG TABLET PO SCH (20:33)
--- NOTE | 2020-04-05 23:26 | PN ---
Subjective - Date and Time Seen Date: 04/05/20 Time: 12:30 Subjective Narrative: Dee Dee reports feeling better. No shortness of breath. Oxygen weaned off to room air and she remains 94% and above while talking with me. No fever, chills, nausea, or vomiting. Objective - Vitals Vitals: Last Vital Signs Temp 36.8 C 04/05/20 17:06 Pulse 66 04/05/20 17:06 Resp 25 H 04/05/20 17:06 BP 125/55 04/05/20 17:06 Pulse Ox 92 L 04/05/20 17:06 - Abnormal Lab Findings Abnormal Lab Findings: Abnormal Lab Results 04/05/20 04/05/20 Range/Units 07:08 07:08 RBC 4.12 L (4.2-5.4) M/mm3 Hgb 11.9 L (12.5-16.0) gm/dL Hct 36.4 L (37.0-47.0) % Immature Gran % (Auto) 4.50 H (0.001-0.429) % Immature Gran # (Auto) 0.27 H (0.000-0.0310) K/mm3 Lymphocytes # 1.48 L (1.5-3.5) k/mm3 Potassium 3.2 L (3.4-4.6) mmol/L Anion Gap 14.5 H (6.8-13.8) mmol/L BUN/Creatinine Ratio 26.9 H (9.0-21.6) Albumin 2.5 L (3.4-5.0) gm/dl - Exam Constitutional: Present: Alert, Oriented x3, Cooperative, Well nourished, No distress ENT Exam: Present: hearing grossly normal Respiratory: Present: lungs clear, normal breath sounds Cardiovascular/Chest: Present: regular rate, rhythm, no murmur Abdomen: Present: Normal bowel sounds, soft, nontender, nondistended Skin Exam: Present: normal color, warm/dry, no cyanosis Appearance: Present: appropriate appearance, appropriate insight Assessment/Plan Plan Narrative: Improving, weaned off of oxygen today. Will monitor. If she remains off oxygen overnight could consider discharge to home tomorrow. Continue azithromycin and dexamethasone. - Problems/Diagnosis (1) Acute respiratory failure with hypoxia Problem: Acute (2) Pneumonia due to COVID-19 virus Problem: Acute (3) Tobacco abuse Problem: Chronic (4) COPD (chronic obstructive pulmonary disease) Problem: Chronic Qualifiers: COPD type: unspecified COPD Qualified Code(s): J44.9 - Chronic obstructive pulmonary disease, unspecified
[2020-04-06] MEDS: ACETAMINOPHEN 325 MG TABLET PO PRN (07:01)
[2020-04-06] MEDS: GABAPENTIN 300 MG CAPSULE PO SCH ×3 (09:19→20:10)
[2020-04-06] MEDS: LOSARTAN POTASSIUM 50 MG TABLET PO SCH (09:19)
[2020-04-06] MEDS: FERROUS SULFATE 325 MG TABLET PO SCH (09:19)
[2020-04-06] MEDS: ASPIRIN 81 MG TABLET.DR PO SCH (09:19)
[2020-04-06] MEDS: CHOLECALCIFEROL 1,000 UNIT CAPSULE PO SCH (09:19)
[2020-04-06] MEDS: PANTOPRAZOLE SODIUM 20 MG TABLET.DR PO SCH ×2 (09:19→20:11)
[2020-04-06] MEDS: metFORMIN HCL 500 MG TABLET PO SCH ×2 (09:20→17:20)
[2020-04-06] MEDS: AZITHROMYCIN 250 MG TABLET PO SCH (09:20)
[2020-04-06] MEDS: LEVOTHYROXINE SODIUM 50 MCG TABLET PO SCH (09:20)
[2020-04-06] MEDS: amLODIPine BESYLATE 5 MG TABLET PO SCH (09:20)
[2020-04-06] MEDS: SENNOSIDES/DOCUSATE SODIUM 1 TAB TABLET PO SCH (09:20)
[2020-04-06] MEDS: DEXAMETHASONE SODIUM PHOSP/PF 10 MG/ML VIAL IV SCH (09:20)
[2020-04-06] MEDS: ENOXAPARIN SODIUM 40 MG/0.4 ML SYRG SC SCH (09:20)
[2020-04-06] MEDS: FLUTICASONE PROPION/SALMETEROL 14 PUFF DISK.W.DEV IH SCH ×2 (09:21→20:50)
[2020-04-06] MEDS: PREGABALIN 50 MG CAPSULE PO SCH ×3 (09:23→17:20)
[2020-04-06] MEDS: ALPRAZolam 0.5 MG TABLET PO PRN ×2 (10:45→20:11)
--- NOTE | 2020-04-06 11:33 | PN ---
Subjective - Date and Time Seen Date: 04/06/20 Time: 11:30 Subjective Narrative: Patient feeling better. She had desaturation earlier this morning and had to be put back on O2. Objective - Review of Systems Generalized/Overall Review: Reports: Weakness. Denies: Chills, Fever EENTM: Denies: Blurred Vision Respiratory: Reports: Cough, Shortness of Breath. Denies: Orthopnea Cardiac: Denies: Chest Pain, Edema, Palpitations Abdominal: Denies: Nausea, Vomiting, Abdominal Pain Genitourinary Symptoms: Denies: Urgency, Frequency Musculoskeletal Complaints: Reports: Joint Pain Neurological: Reports: Anxiety. Denies: Headache Endocrine: Denies: Intolerance to Cold, Intolerance to Heat Misc: All systems neg except as marked - Vitals Vitals: Last Vital Signs Temp 36.5 C 04/06/20 11:04 Pulse 61 04/06/20 11:04 Resp 18 04/06/20 11:04 BP 115/53 04/06/20 11:04 Pulse Ox 97 04/06/20 11:04 - Exam Constitutional: Present: Alert, Oriented x3, Cooperative ENT Exam: Present: hearing grossly normal Neck: Present: supple. Absent: lymphadenopathy (R), lymphadenopathy (L) Respiratory: Present: decreased breath sounds, No rales, No wheezing Cardiovascular/Chest: Present: regular rate, rhythm, no JVD, no murmur Abdomen: Present: Normal bowel sounds, soft, nontender, nondistended Extremity: Present: no pedal edema, no calf tenderness Assessment/Plan Plan Narrative: Patient on her HD # 4 . O2 has improved but had to to be put back on O2 due to acute respiratory distress likely due to anxiety attack associated with her depression and due to reaction to her stressful current situation. She has ativan PRn with her antidepressant. - Problems/Diagnosis (1) Pneumonia due to COVID-19 virus Problem: Acute (2) Acute respiratory failure with hypoxia Problem: Resolved (3) COPD (chronic obstructive pulmonary disease) Problem: Chronic Qualifiers: COPD type: unspecified COPD Qualified Code(s): J44.9 - Chronic obstructive pulmonary disease, unspecified (4) Tobacco abuse Problem: Chronic (5) Anxiety associated with depression Problem: Acute
[2020-04-06] MEDS: NICOTINE 21 MG PATC TD SCH (17:20)
[2020-04-06] MEDS ORDERED: POTASSIUM CHLORIDE 10 MEQ TABLET.SA PO ONE (17:36)
[2020-04-06] MEDS: ROSUVASTATIN CALCIUM 20 MG TABLET PO SCH (20:11)
[2020-04-06] MEDS: MELATONIN 3,000 MCG TABLET PO SCH (20:20)
[2020-04-07] MEDS: ACETAMINOPHEN 325 MG TABLET PO PRN ×2 (00:35→18:34)
[2020-04-07] MEDS: LOSARTAN POTASSIUM 50 MG TABLET PO SCH (08:16)
[2020-04-07] MEDS: ASPIRIN 81 MG TABLET.DR PO SCH (08:16)
[2020-04-07] MEDS: GABAPENTIN 300 MG CAPSULE PO SCH ×3 (08:16→20:20)
[2020-04-07] MEDS: DEXAMETHASONE SODIUM PHOSP/PF 10 MG/ML VIAL IV SCH (08:17)
[2020-04-07] MEDS: metFORMIN HCL 500 MG TABLET PO SCH ×2 (08:19→16:44)
[2020-04-07] MEDS: amLODIPine BESYLATE 5 MG TABLET PO SCH (08:19)
[2020-04-07] MEDS: PANTOPRAZOLE SODIUM 20 MG TABLET.DR PO SCH ×2 (08:19→20:21)
[2020-04-07] MEDS: FERROUS SULFATE 325 MG TABLET PO SCH (08:19)
[2020-04-07] MEDS: SENNOSIDES/DOCUSATE SODIUM 1 TAB TABLET PO SCH (08:19)
[2020-04-07] MEDS: CHOLECALCIFEROL 1,000 UNIT CAPSULE PO SCH (08:20)
[2020-04-07] MEDS: LEVOTHYROXINE SODIUM 50 MCG TABLET PO SCH (08:20)
[2020-04-07] MEDS: PREGABALIN 50 MG CAPSULE PO SCH ×3 (08:21→16:46)
[2020-04-07] MEDS: ALPRAZolam 0.5 MG TABLET PO PRN (08:21)
[2020-04-07] MEDS: ENOXAPARIN SODIUM 40 MG/0.4 ML SYRG SC SCH (08:36)
[2020-04-07] MEDS: FLUTICASONE PROPION/SALMETEROL 14 PUFF DISK.W.DEV IH SCH ×2 (08:37→20:21)
--- NOTE | 2020-04-07 12:44 | PN ---
Subjective - Date and Time Seen Date: 04/07/20 Time: 12:33 Subjective Narrative: Patient is afebrile. Has been having several episodes of anxiety attacks and asking for her medications. Objective - Review of Systems Generalized/Overall Review: Denies: Chills, Fever EENTM: Denies: Blurred Vision Respiratory: Reports: Cough, Shortness of Breath - With exertion Cardiac: Denies: Chest Pain, Edema, Palpitations Abdominal: Denies: Nausea, Vomiting, Abdominal Pain Genitourinary Symptoms: Denies: Urgency, Frequency Neurological: Reports: Anxiety. Denies: Headache Endocrine: Denies: Intolerance to Cold, Intolerance to Heat Misc: All systems neg except as marked - Vitals Vitals: Last Vital Signs Temp 36.7 C 04/07/20 09:00 Pulse 63 04/07/20 09:00 Resp 22 H 04/07/20 09:00 BP 129/58 04/07/20 09:00 Pulse Ox 96 04/07/20 09:00 - Exam Constitutional: Present: Alert, Oriented x3, Cooperative ENT Exam: Present: hearing grossly normal Neck: Present: supple. Absent: lymphadenopathy (R), lymphadenopathy (L) Respiratory: Present: decreased breath sounds, No rales, No wheezing Cardiovascular/Chest: Present: regular rate, rhythm, no JVD, no murmur Extremity: Present: no pedal edema, no calf tenderness Assessment/Plan Plan Narrative: Dee Dee has been weaned off oxygen since 7:00 last night and saturating above 90% on room air. She had again episodes of anxiety attacks last night and had been requesting her Xanax. She does complain of shortness of breath at rest and on exertion with respiratory rate of 20-22 . When asked what is making her anxious she said that she does not really know what. She is already on the maximum dose of her Trintellix and has alprazolam 0.5 mg twice daily as needed for anxiety with respiratory rate of 20-22. She does have a nicotine patch ordered for her. We will increase her alprazolam to 3 times daily as needed for anxiety and possible discharge tomorrow. - Problems/Diagnosis (1) Pneumonia due to COVID-19 virus Problem: Acute (2) Acute respiratory failure with hypoxia Problem: Resolved (3) COPD (chronic obstructive pulmonary disease) Problem: Chronic Qualifiers: COPD type: unspecified COPD Qualified Code(s): J44.9 - Chronic obstructive pulmonary disease, unspecified (4) Tobacco abuse Problem: Chronic (5) Anxiety associated with depression Problem: Acute
[2020-04-07] MEDS ORDERED: ALPRAZolam 0.5 MG TABLET PO PRN (12:49)
[2020-04-07] MEDS: NICOTINE 21 MG PATC TD SCH (16:46)
[2020-04-07] MEDS: MELATONIN 3,000 MCG TABLET PO SCH (20:20)
[2020-04-07] MEDS: ROSUVASTATIN CALCIUM 20 MG TABLET PO SCH (20:20)
[2020-04-08] MEDS: ACETAMINOPHEN 325 MG TABLET PO PRN (01:43)
[2020-04-08] MEDS: ASPIRIN 81 MG TABLET.DR PO SCH (08:07)
[2020-04-08] MEDS: FLUTICASONE PROPION/SALMETEROL 14 PUFF DISK.W.DEV IH SCH (08:07)
[2020-04-08] MEDS: GABAPENTIN 300 MG CAPSULE PO SCH (08:07)
[2020-04-08] MEDS: metFORMIN HCL 500 MG TABLET PO SCH (08:08)
[2020-04-08] MEDS: DEXAMETHASONE SODIUM PHOSP/PF 10 MG/ML VIAL IV SCH (08:08)
[2020-04-08] MEDS: FERROUS SULFATE 325 MG TABLET PO SCH (08:08)
[2020-04-08] MEDS: LOSARTAN POTASSIUM 50 MG TABLET PO SCH (08:08)
[2020-04-08] MEDS: PANTOPRAZOLE SODIUM 20 MG TABLET.DR PO SCH (08:09)
[2020-04-08] MEDS: SENNOSIDES/DOCUSATE SODIUM 1 TAB TABLET PO SCH (08:09)
[2020-04-08] MEDS: amLODIPine BESYLATE 5 MG TABLET PO SCH (08:09)
[2020-04-08] MEDS: PREGABALIN 50 MG CAPSULE PO SCH (08:09)
[2020-04-08] MEDS: CHOLECALCIFEROL 1,000 UNIT CAPSULE PO SCH (08:09)
[2020-04-08] MEDS: LEVOTHYROXINE SODIUM 50 MCG TABLET PO SCH (08:09)
[2020-04-08] MEDS: ACETAMINOPHEN 500 MG TABLET PO PRN (08:11)
[2020-04-08] MEDS: ENOXAPARIN SODIUM 40 MG/0.4 ML SYRG SC SCH (08:44)
--- NOTE | 2020-04-08 12:03 | DS ---
(1) Acute respiratory failure with hypoxia Problem: Resolved (2) Pneumonia due to COVID-19 virus Problem: Acute (3) Tobacco abuse Problem: Chronic (4) COPD (chronic obstructive pulmonary disease) Problem: Chronic Qualifiers: COPD type: unspecified COPD Qualified Code(s): J44.9 - Chronic obstructive pulmonary disease, unspecified Date of Discharge:: 04/08/20 Hospital Course: Dee Dee is a 74 yo female admitted due to hypoxia secondary to COVID19. She was treated with azithromycin and IV dexamethasone. She required up to 4lpm of oxygen and was gradually weaned off. She has been off of oxygen for the past two days and without hypoxic events. She is feeling better and having no significant shortness of breath. She will be discharged to home with resumption of [facility]. I will give her a tapering dose of prednisone. Procedures Performed: none Results and Findings: Lab Pending Results 04/02/20 10:48: WBC 8.6, RBC 4.00 L, Hgb 11.7 L, Hct 35.4 L, MCV 88.5, MCH 29.3, MCHC 33.1, RDW 13.8, Plt Count 180, MPV 12.1, Immature Gran % (Auto) 3.00 H, Immature Gran # (Auto) 0.26 H, Neutrophils % 77.0 H, Lymphocytes % 15.0 L, Monocytes % 4.5, Eosinophils % 0.0, Basophils % 0.5, Nucleated RBC % 0.0, Neutrophils # 6.6 H, Lymphocytes # 1.29 L, Monocytes # 0.4, Eosinophils # 0.0, Absolute Basophils 0.0 04/02/20 10:48: Sodium 138, Plasma Sodium 138, Potassium 3.2 L, Chloride 104, Carbon Dioxide 21.8 L, Anion Gap 15.4 H, BUN 10, Creatinine 0.73, Est GFR (Non- Af Amer) 83, BUN/Creatinine Ratio 13.7, Random Glucose 121 H, Calcium 8.3, Calcium Adj for Albumin 8.9, Total Bilirubin 0.3, AST 54 H, ALT 47, Alkaline Phosphatase 69, Troponin I 0.112 H*, B-Natriuretic Peptide 558 H, Total Protein 6.4, Albumin 2.8 L 04/02/20 10:48: Lactic Acid, Venous 1.9 04/02/20 10:48: Procalcitonin 0.38 04/05/20 07:08: WBC 6.0 D, RBC 4.12 L, Hgb 11.9 L, Hct 36.4 L, MCV 88.3, MCH 28.9, MCHC 32.7, RDW 13.5, Plt Count 272, MPV 10.9, Immature Gran % (Auto) 4.50 H, Immature Gran # (Auto) 0.27 H, Neutrophils % 60.9, Lymphocytes % 24.7, Monocytes % 8.9, Eosinophils % 0.2, Basophils % 0.8, Nucleated RBC % 0.0, Neutrophils # 3.6, Lymphocytes # 1.48 L, Monocytes # 0.5, Eosinophils # 0.0, Absolute Basophils 0.1 04/05/20 07:08: Sodium 142, Plasma Sodium 142, Potassium 3.2 L, Chloride 106, Carbon Dioxide 24.7, Anion Gap 14.5 H, BUN 18 D, Creatinine 0.67, Est GFR (Non- Af Amer) 91, BUN/Creatinine Ratio 26.9 H, Random Glucose 99, Calcium 8.6, Calcium Adj for Albumin 9.5, Total Bilirubin 0.4, AST 47, ALT 44, Alkaline Phosphatase 57, Total Protein 6.3, Albumin 2.5 L Discharge Location: Home Disposition: Home Health Service Home Health Agency: [facility] Condition: Good Discharge Activity: Activity as tolerated Discharge Diet: General/regular food Referrals: Jaycob Tovar MD [Primary Care Provider] - (1-2 weeks, COVID19 follow up. May do virtual visit if able) Problem Oriented Discharge Instructions to Patient/Family: COVID-19 Additional Patient Instructions (free text): Resume [facility] at discharge. Please call report and fax orders upon discharge. Prescriptions (Any new or edited meds): predniSONE [Prednisone] 2 tab PO DAILY #25 tab Transmission Status: Pending to [facility], [place], [place] Complete Home Medications List: Complete Home Medication List: Albuterol Sulfate/Ipratropium [Duoneb 2.5-0.5MG/3ML Soln] 3 ml IH QID 12/11/15 ferrous fumarate 325 mg (106 mg iron) tablet 325 mg PO DAILY #90 tab 05/08/19 aspirin 81 mg tablet,delayed release 81 mg .ROUTE .COMPLEX #90 tab 06/19/19 docusate sodium 100 mg capsule 100 - 200 mg PO DAILY PRN cap 06/27/19 melatonin 10 mg capsule 10 mg PO HS 06/27/19 albuterol sulfate 90 mcg/actuation aerosol inhaler 2 puff IH Q6H PRN #18 g 07/13/19 metformin 500 mg tablet 500 mg PO BID #60 tab 07/24/19 baclofen 10 mg tablet 10 mg PO TID PRN #30 tab 07/31/19 omeprazole 20 mg capsule,delayed release 20 mg PO BID #60 cap 08/14/19 Amlodipine Besylate 5 mg PO DAILY 11/20/19 Atorvastatin Calcium 40 mg PO HS 11/20/19 Ibuprofen 1 tab PO Q6H PRN 11/20/19 Losartan Potassium [Cozaar] 100 mg PO DAILY 11/20/19 alprazolam 0.5 mg tablet 0.5 mg PO BID PRN #60 tab 03/04/20 Acetaminophen 500 mg QID PRN 03/29/20 Budesonide/Formoterol Fumarate [Symbicort 160-4.5 Mcg Inhaler] 2 puff INHALATION BID 03/29/20 Cholecalciferol (Vitamin D3) [Vitamin D3] 2,000 unit PO DAILY 03/29/20 Flaxseed Oil [Flax Seed Oil] 1,000 mg PO TID 03/29/20 Gabapentin 1 cap PO 1200 03/29/20 Gabapentin 600 mg PO 0800,2100 03/29/20 Levothyroxine Sodium [Synthroid] 50 mcg PO DAILY 03/29/20 Pregabalin [Lyrica] 50 mg PO TID 03/29/20 Sennosides/Docusate Sodium [Senna-S 8.6-50 mg Tablet] 2 ea PO DAILY 03/29/20 Vortioxetine Hydrobromide [Trintellix] 20 mg PO DAILY 03/29/20 Azithromycin [Zithromax] 250 mg PO DAILY #4 tab 03/30/20 Prednisone 50 mg PO DAILY #5 tab 03/30/20 Acetaminophen [Tylenol] 650 mg PO Q4H PRN tablet 04/08/20 Nicotine [Nicoderm] 21 mg TD Q24H patch.td24 04/08/20 predniSONE [Prednisone] 2 tab PO DAILY #25 tab 04/08/20 Forms: Patient Portal Registration
[2020-04-08 14:43] VITALS: BP 116/73
== END 2020-04-08 14:01 | disposition home health service (06) | DRG 177 ==
LOC: ER 10:17 → SCU 13:49
PROVIDERS: ADMIT Family Medicine; ATTEND Family Medicine